=== PATIENT | female | born 1945 | race Caucasian/White ===

== ENCOUNTER 2017-07-22 20:29 | Inpatient (IN) | payer MEDICARE, OTHER ==
[~2017-07-22] VITALS: Ht 167.6 cm; Wt 53.3 kg
[2017-07-22] MEDS ORDERED: SODIUM CHLORIDE 0.9% 1,000 ML IVB ONE (20:46)
[2017-07-22 21:25] LABS: Hematocrit 41.4 % (36.0-46.0); Hemoglobin 14.3 g/dL (12.2-16.2); Mean Corpuscular Hgb Conc. 34.5 g/dL (32.0-36.0); Mean Corpuscular Volume 89.8 fL (80.0-100.0); Platelet Count (auto) 252 10^3/uL (140-450); Red Cell Distribution Width 14.4 % (11.8-14.3); White Blood Cell 28.3 10^3/uL (4.4-10.8)
[2017-07-22 21:31] LABS: Basophils % (manual) 0 (0.0-2.0); Blast Cells 0; Eosinophils % (manual) 0 (0-7); Metamyelocytes % 0; Myelocytes % 0; Promyelocytes % 0
[2017-07-22 21:57] LABS: Alanine Aminotransferase 111 U/L (13-56); Albumin 2.1 g/dL (3.4-5.0); Anion Gap 25 (5-15); Blood Alcohol < 3.0 mg/dL (0-5); Calcium 8.7 mg/dL (8.5-10.1); Carbon Dioxide 10 mmol/L (21-32); Chloride 98 mmol/L (98-107); GFR African American 15 mL/min; GFR Non-African American 12 mL/min; Glucose 128 mg/dL (74-106); Magnesium 3.5 mg/dL (1.6-2.6); Potassium 3.8 mmol/L (3.5-5.1); Sodium 133 mmol/L (136-145)
[2017-07-22 22:00] LABS: Alkaline Phosphatase 106 U/L (45-117); Aspartate Aminotransferase 99 U/L (15-37); Bilirubin, Total 0.7 mg/dL (0.2-1.0); Total Protein 7.1 g/dL (6.4-8.2)
[2017-07-22 22:09] LABS: INR 1.01 (0.9-1.15); Partial Thromboplastin Time 32.4 sec (22.64-33.71)
[2017-07-22 22:19] LABS: Urine Bacteria FEW /hpf (None Seen); Urine Blood Negative /uL (Negative); Urine Hyaline Cast FEW /lpf (0 - 2); Urine Specific Gravity 1.014 (1.001-1.035); Urine WBC 2 /hpf (0 - 5)
[2017-07-22 22:19] LABS: BUN/Creatinine Ratio 70.2
[2017-07-22 22:26] LABS: Alcohol, Urine < 3.0 mg/dL (0-5); Amphetamine Screen, Urine NEGATIVE (NEGATIVE); Barbiturate Scree,Urine NEGATIVE (NEGATIVE); Benzodiazephine Screen, Urine NEGATIVE (NEGATIVE); Cannabinoid Screen, Urine NEGATIVE (NEGATIVE); Cocaine Screen, Urine NEGATIVE (NEGATIVE); Opiate Scree,Urine NEGATIVE (NEGATIVE); Phencyclidine Screen, Urine NEGATIVE (NEGATIVE)
[2017-07-22 22:28] LABS: Blood Urea Nitrogen 271 mg/dL (7-18)
[2017-07-22 23:14] LABS: Band Neutrophils % (manual) 5; Lymphocytes % (manual) 1 (10.0-50.0); Monocytes % (manual) 5 (0-12); Reactive Lymphocytes 2
[2017-07-23] MEDS ORDERED: SODIUM CHLORIDE 0.9% 1,000 ML IV ONE (00:45)
[2017-07-23] MEDS ORDERED: PIPERACILLIN-TAZOB 3.375GM 100 ML IV ONE (01:00)
[2017-07-23] MEDS ORDERED: metroNIDAZOLE 500MG/100ML 100 ML IV ONE (01:00)
[2017-07-23] MEDS ORDERED: NALBUPHINE HCL 10 MG/1ml INJECTION IV ONE (01:15)
[2017-07-23 01:24] LABS: CRP High Sensitivity 21.96 mg/dL (< 0.3)
[2017-07-23] MEDS ORDERED: ACETAMINOPHEN 500 MG TAB PO PRN (04:45)
[2017-07-23] MEDS ORDERED: ONDANSETRON HCL 4 MG/2 ML VIAL IV PRN (04:45)
[2017-07-23] MEDS ORDERED: HYDROcodone-ACET 5/325MG TAB PO PRN (04:45)
[2017-07-23] MEDS: SODIUM CHLORIDE 0.9% 1,000 ML IV SCH ×2 (05:09→12:46)
[2017-07-23 05:45] LABS: Calcium 8.3 mg/dL (8.5-10.1); Potassium 3.3 mmol/L (3.5-5.1)
[2017-07-23] MEDS ORDERED: POTASSIUM CHL 20MEQ/100ML 100 ML IV ONE (06:00)
[2017-07-23] MEDS: PIPERACILLIN-TAZOB 2.25GM 50 ML IV SCH ×3 (06:16→22:07)
[2017-07-23] MEDS: MORPHINE SULFATE 8mg/ml INJ SDV IV PRN ×2 (07:45→19:55)
[2017-07-23] MEDS: PANTOPRAZOLE 40 MG/10 ML VIAL IV SCH (10:27)
[2017-07-23] MEDS ORDERED: MIDAZOLAM HCL 1MG/1ML-2 ML VIAL ONE (13:13)
[2017-07-23] MEDS ORDERED: fentaNYL CITRATE 100 MCG/2 ML VL ONE (13:13)
[2017-07-23] MEDS ORDERED: ETOMIDATE (2MG/ML) 20ML VIAL IV ONE (16:17)
[2017-07-23 18:08] VITALS: BP 115/69
[2017-07-23] MEDS: metroNIDAZOLE 500MG/100ML 100 ML IV SCH (19:55)
[2017-07-23 20:00] VITALS: BP 119/65
[2017-07-23] MEDS: SODIUM BICARBONATE 50ML VIAL 150 ML in D5W 5% 1,000 ML IV SCH (21:15)
[2017-07-24] MEDS: MORPHINE SULFATE 8mg/ml INJ SDV IV PRN ×3 (00:58→17:43)
[2017-07-24] MEDS: metroNIDAZOLE 500MG/100ML 100 ML IV SCH ×4 (00:58→17:43)
[2017-07-24 05:37] LABS: Hemoglobin 10.5 g/dL (12.2-16.2); Mean Corpuscular Hemoglobin 31.2 pg (28.0-32.0); Mean Corpuscular Hgb Conc. 34.9 g/dL (32.0-36.0); Mean Corpuscular Volume 89.4 fL (80.0-100.0); Platelet Count (auto) 179 10^3/uL (140-450); Red Blood Cells 3.36 10^6/uL (4.0-5.20); Red Cell Distribution Width 14.3 % (11.8-14.3); White Blood Cell 19.2 10^3/uL (4.4-10.8)
[2017-07-24] MEDS: PIPERACILLIN-TAZOB 2.25GM 50 ML IV SCH ×3 (05:44→22:21)
[2017-07-24 05:54] LABS: Albumin 1.6 g/dL (3.4-5.0); BUN/Creatinine Ratio 70.2; Bilirubin, Total 0.7 mg/dL (0.2-1.0); Calcium 7.8 mg/dL (8.5-10.1); Magnesium 2.9 mg/dL (1.6-2.6); Total Protein 5.7 g/dL (6.4-8.2)
[2017-07-24 06:12] LABS: Potassium 2.7 mmol/L (3.5-5.1)
[2017-07-24] MEDS: SODIUM BICARBONATE 50ML VIAL 150 ML in D5W 5% 1,000 ML IV SCH (06:27)
[2017-07-24 06:41] LABS: Basophils % (manual) 0 (0.0-2.0); Blast Cells 0; Promyelocytes % 0
[2017-07-24 06:44] LABS: Band Neutrophils % (manual) 8; Eosinophils % (manual) 4 (0-7); Lymphocytes % (manual) 1 (10.0-50.0); Metamyelocytes % 2; Monocytes % (manual) 6 (0-12); Myelocytes % 1; Reactive Lymphocytes 1
[2017-07-24] MEDS: POTASSIUM CHL 20MEQ/100ML 100 ML IV SCH ×4 (06:45→12:45)
[2017-07-24 08:00] VITALS: BP 113/58
[2017-07-24] MEDS ORDERED: POTASSIUM CHL 10% (20 MEQ/15ML) 15ml ORAL SOLN ONE (09:16)
[2017-07-24] MEDS: PANTOPRAZOLE 40 MG/10 ML VIAL IV SCH (09:25)
[2017-07-24] MEDS ORDERED: SODIUM CHLORIDE 0.9% 1,000 ML IV ONE (11:15)
[2017-07-24 12:00] VITALS: BP 104/60
[2017-07-24] MEDS ORDERED: D5W/SOD CHL 0.45%/KCL 40MEQ 1,000 ML IV SCH (12:15)
[2017-07-24] MEDS ORDERED: LIDOCAINE 1% (LOCAL ANESTH.) PF 5ml SDV ID ONE (14:45)
[2017-07-24 16:00] VITALS: BP 112/59
[2017-07-24 18:34] LABS: BUN/Creatinine Ratio 62.7; Potassium 3.7 mmol/L (3.5-5.1)
[2017-07-24 20:00] VITALS: BP 123/68
[2017-07-24] MEDS: D5W 5% 1,000 ML IV SCH (20:26)
[2017-07-24] MEDS: SODIUM CHLOR 0.9% PF (SALINE LOCK) 10ML VIAL/SYR IV SCH (22:20)
[2017-07-25] VITALS (7 sets, daily range): BP systolic 107–138; BP diastolic 50–67
[2017-07-25] MEDS: PIPERACILLIN-TAZOB 2.25GM 50 ML IV SCH ×3 (05:00→20:40)
[2017-07-25] MEDS: D5W 5% 1,000 ML IV SCH ×4 (05:00→20:39)
[2017-07-25 05:18] LABS: Hematocrit 28.9 % (36.0-46.0); Hemoglobin 10.1 g/dL (12.2-16.2); Mean Corpuscular Hemoglobin 31.7 pg (28.0-32.0); Mean Corpuscular Hgb Conc. 35.1 g/dL (32.0-36.0); Mean Corpuscular Volume 90.3 fL (80.0-100.0); Platelet Count (auto) 171 10^3/uL (140-450); Red Cell Distribution Width 14.4 % (11.8-14.3); White Blood Cell 8.9 10^3/uL (4.4-10.8)
[2017-07-25 05:19] LABS: Basophils % (manual) 0 (0.0-2.0); Blast Cells 0; Metamyelocytes % 0; Myelocytes % 0; Promyelocytes % 0; Reactive Lymphocytes 0
[2017-07-25 06:48] LABS: Band Neutrophils % (manual) 13
[2017-07-25 06:49] LABS: BUN/Creatinine Ratio 49.7; Calcium 7.8 mg/dL (8.5-10.1); Potassium 3.5 mmol/L (3.5-5.1)
[2017-07-25 06:49] LABS: Eosinophils % (manual) 8 (0-7); Monocytes % (manual) 4 (0-12)
[2017-07-25 06:50] LABS: Lymphocytes % (manual) 2 (10.0-50.0)
[2017-07-25] MEDS: metroNIDAZOLE 500MG/100ML 100 ML IV SCH ×5 (06:56→23:39)
[2017-07-25] MEDS: PANTOPRAZOLE 40 MG/10 ML VIAL IV SCH (09:33)
[2017-07-25] MEDS: SODIUM CHLOR 0.9% PF (SALINE LOCK) 10ML VIAL/SYR IV SCH ×2 (09:33→20:39)
[2017-07-25] MEDS ORDERED: TPN PER PHARMACY 0 ML IV SCH (14:30)
[2017-07-25] MEDS ORDERED: DEXTROSE (50%) 50ML SYRG IV SCH (20:00)
[2017-07-25] MEDS ORDERED: CLINIMIX PER PHARMACY IV NR ×2 (20:00)
[2017-07-25] MEDS: InsuLIN REG 1unit/0.01ml Soln (100units/ml) SC SCH (23:39)
[2017-07-25] MEDS: ACCU-CHEK COMFORT CURVE STRIP VI SCH (23:39)
[2017-07-26] MEDS: metroNIDAZOLE 500MG/100ML 100 ML IV SCH ×4 (05:14→23:51)
[2017-07-26] MEDS: PIPERACILLIN-TAZOB 2.25GM 50 ML IV SCH ×3 (05:59→17:58)
[2017-07-26] MEDS: ACCU-CHEK COMFORT CURVE STRIP VI SCH ×3 (05:59→17:59)
[2017-07-26] MEDS: InsuLIN REG 1unit/0.01ml Soln (100units/ml) SC SCH ×3 (06:07→17:59)
[2017-07-26 06:11] LABS: Hematocrit 34.4 % (36.0-46.0); Hemoglobin 11.4 g/dL (12.2-16.2); Mean Corpuscular Hemoglobin 30.5 pg (28.0-32.0); Mean Corpuscular Hgb Conc. 33.3 g/dL (32.0-36.0); Mean Corpuscular Volume 91.5 fL (80.0-100.0); Platelet Count (auto) 158 10^3/uL (140-450); Red Blood Cells 3.76 10^6/uL (4.0-5.20); Red Cell Distribution Width 14.5 % (11.8-14.3); White Blood Cell 11.2 10^3/uL (4.4-10.8)
[2017-07-26 06:14] LABS: Band Neutrophils % (manual) 0; Basophils % (manual) 0 (0.0-2.0); Blast Cells 0; Metamyelocytes % 0; Myelocytes % 0; Promyelocytes % 0; Reactive Lymphocytes 0
[2017-07-26 06:38] LABS: Albumin 1.6 g/dL (3.4-5.0); BUN/Creatinine Ratio 32.5; Bilirubin, Total 0.3 mg/dL (0.2-1.0); Calcium 7.5 mg/dL (8.5-10.1); Phosphorus 1.1 mg/dL (2.5-4.90); Potassium 3.4 mmol/L (3.5-5.1); Pre Albumin 9.7 mg/dL (20.0-40.0); Total Protein 5.5 g/dL (6.4-8.2)
[2017-07-26 08:00] VITALS: BP 149/77
[2017-07-26] MEDS: MORPHINE SULFATE 8mg/ml INJ SDV IV PRN ×3 (08:57→23:51)
[2017-07-26 10:00] VITALS: BP 127/79
[2017-07-26] MEDS ORDERED: LORazepam 2MG/ML-1ML VIAL IV PRN (10:30)
[2017-07-26] MEDS ORDERED: POTASSIUM CHL 20MEQ/100ML 100 ML IV ONE (10:30)
[2017-07-26] MEDS ORDERED: POTASSIUM PHOSPHATE 44 MEQ in D5W 5% 250 ML IV ONE (11:30)
[2017-07-26] MEDS: PANTOPRAZOLE 40 MG/10 ML VIAL IV SCH (11:40)
[2017-07-26] MEDS: SODIUM CHLOR 0.9% PF (SALINE LOCK) 10ML VIAL/SYR IV SCH ×2 (11:40→20:45)
[2017-07-26] MEDS: D5W 5% 1,000 ML IV SCH ×2 (11:45→20:46)
[2017-07-26 12:00] VITALS: BP 148/89
[2017-07-26 12:09] LABS: Eosinophils % (manual) 6 (0-7); Lymphocytes % (manual) 5 (10.0-50.0); Monocytes % (manual) 4 (0-12)
[2017-07-26 16:00] VITALS: BP 137/75
[2017-07-26 19:51] VITALS: BP 132/77
[2017-07-26] MEDS ORDERED: TPN PER PHARMACY IV NR ×9 (20:00)
[2017-07-26 23:50] VITALS: BP 157/81
[2017-07-27] MEDS: InsuLIN REG 1unit/0.01ml Soln (100units/ml) SC SCH ×4 (00:07→17:57)
[2017-07-27] MEDS: ACCU-CHEK COMFORT CURVE STRIP VI SCH ×4 (00:07→17:57)
[2017-07-27] MEDS: PIPERACILLIN-TAZOB 2.25GM 50 ML IV SCH ×4 (01:00→17:51)
[2017-07-27 04:00] VITALS: BP 122/71
[2017-07-27] MEDS: metroNIDAZOLE 500MG/100ML 100 ML IV SCH ×3 (06:38→17:51)
[2017-07-27 06:48] LABS: Albumin 1.5 g/dL (3.4-5.0); BUN/Creatinine Ratio 25.7; Bilirubin, Total 0.2 mg/dL (0.2-1.0); Calcium 7.3 mg/dL (8.5-10.1); Magnesium 1.9 mg/dL (1.6-2.6); Phosphorus 2.2 mg/dL (2.5-4.90); Total Protein 5.3 g/dL (6.4-8.2)
[2017-07-27] MEDS: MORPHINE SULFATE 8mg/ml INJ SDV IV PRN ×3 (08:38→21:55)
[2017-07-27] MEDS: PANTOPRAZOLE 40 MG/10 ML VIAL IV SCH (09:36)
[2017-07-27] MEDS: SODIUM CHLOR 0.9% PF (SALINE LOCK) 10ML VIAL/SYR IV SCH ×2 (09:36→20:29)
[2017-07-27] MEDS ORDERED: MAGNESIUM SULFATE 1GM/100ML 100 ML IV ONE (11:00)
[2017-07-27 11:50] VITALS: BP 135/81
[2017-07-27] MEDS: D5W 5% 1,000 ML IV SCH (12:40)
[2017-07-27] MEDS ORDERED: GASTROGRAFIN 120 ML SOL ONE ×2 (13:28→13:38)
[2017-07-27 15:59] VITALS: BP 119/77
[2017-07-27 19:48] VITALS: BP 134/73
[2017-07-27] MEDS: TPN PER PHARMACY IV NR ×9 (20:42)
[2017-07-28] VITALS (52 sets, daily range): BP systolic 82–154; BP diastolic 53–115
[2017-07-28] MEDS: ACCU-CHEK COMFORT CURVE STRIP VI SCH ×5 (00:21→23:59)
[2017-07-28] MEDS: InsuLIN REG 1unit/0.01ml Soln (100units/ml) SC SCH ×4 (00:21→17:43)
[2017-07-28] MEDS: PIPERACILLIN-TAZOB 2.25GM 50 ML IV SCH ×3 (00:21→12:35)
[2017-07-28] MEDS: metroNIDAZOLE 500MG/100ML 100 ML IV SCH ×5 (00:22→23:59)
[2017-07-28 02:32] LABS: Urine Bacteria NONE SEEN /hpf (None Seen); Urine Blood 1+ /uL (Negative); Urine Specific Gravity 1.027 (1.001-1.035); Urine WBC 2 /hpf (0 - 5)
[2017-07-28] MEDS: D5W 5% 1,000 ML IV SCH (03:47)
[2017-07-28 05:52] LABS: Basophils # (auto) 0 uL; Basophils % (auto) 0.4 % (0.0-2.0); Eosinophils # (auto) 0.1 uL; Hematocrit 32.1 % (36.0-46.0); Hemoglobin 10.6 g/dL (12.2-16.2); Lymphocytes # (auto) 1.1 uL; Lymphocytes % (auto) 8.5 % (10.0-50.0); Mean Corpuscular Hemoglobin 30.8 pg (28.0-32.0); Mean Corpuscular Volume 93.1 fL (80.0-100.0); Monocytes # (auto) 0.6 uL; Monocytes % (auto) 4.6 % (0.0-12.0); Neutrophils # (auto) 10.7 uL; Neutrophils % (auto) 85.5 % (37.0-80.0); Platelet Count (auto) 123 10^3/uL (140-450); Red Blood Cells 3.45 10^6/uL (4.0-5.20); Red Cell Distribution Width 14.7 % (11.8-14.3); White Blood Cell 12.5 10^3/uL (4.4-10.8)
[2017-07-28 05:55] LABS: INR 1.14 (0.9-1.15); Partial Thromboplastin Time 30.3 sec (22.64-33.71); Prothrombin Time 12.4 sec (9.37-12.3)
[2017-07-28 06:03] LABS: Potassium 3.4 mmol/L (3.5-5.1)
[2017-07-28 06:12] LABS: Albumin 1.5 g/dL (3.4-5.0); BUN/Creatinine Ratio 29.1; Calcium 7.3 mg/dL (8.5-10.1); Magnesium 1.9 mg/dL (1.6-2.6)
[2017-07-28 06:14] LABS: Bilirubin, Total 0.3 mg/dL (0.2-1.0); Total Protein 5.3 g/dL (6.4-8.2)
[2017-07-28] MEDS ORDERED: SUCCINYLCHOLINE CHLORIDE 20 MG/ML 10ML VIAL IV ONE (07:03)
[2017-07-28] MEDS ORDERED: HYDROmorphone HCL 2 MG/ML VL ONE ×2 (07:06→09:46)
[2017-07-28] MEDS ORDERED: POVIDONE IODINE 10 % TOPICAL OINT 30GM TOP ONE (07:06)
[2017-07-28] MEDS ORDERED: fentaNYL CITRATE 100 MCG/2 ML VL ONE ×2 (07:06→07:07)
[2017-07-28] MEDS ORDERED: ETOMIDATE (2MG/ML) 20ML VIAL IV ONE (07:07)
[2017-07-28] MEDS ORDERED: ROCURONIUM 10MG/ML 10ML VIAL IV ONE (07:07)
[2017-07-28] MEDS ORDERED: FUROSEMIDE 20 MG/2 ML VIAL ONE (07:07)
[2017-07-28] MEDS ORDERED: MIDAZOLAM HCL 1MG/1ML-2 ML VIAL ONE ×2 (07:35→09:46)
[2017-07-28] MEDS ORDERED: D5W 5% 1,000 ML IV SCH (08:00)
[2017-07-28] MEDS ORDERED: NOREPINEPHRINE 16 MG/500ML KIT 500 ML IV ONE (08:59)
[2017-07-28 09:09] LABS: Phosphorus 2.3 mg/dL (2.5-4.90)
[2017-07-28] MEDS ORDERED: MIDAZOLAM DRIP 50 mg/50mL 50 ML IV ONE (10:24)
[2017-07-28] MEDS ORDERED: POTASSIUM PHOSP 22MEQ(15MMOLE) in NS 100 ML IV ONE (11:30)
[2017-07-28] MEDS: NOREPINEPHRINE 16 MG/500ML KIT 500 ML IV SCH (11:35)
[2017-07-28] MEDS: PANTOPRAZOLE 40 MG/10 ML VIAL IV SCH (11:53)
[2017-07-28] MEDS: SODIUM CHLOR 0.9% PF (SALINE LOCK) 10ML VIAL/SYR IV SCH ×2 (11:53→22:58)
[2017-07-28] MEDS: D5W/SOD CHL 0.45% 1,000 ML IV SCH (12:35)
[2017-07-28 13:41] LABS: Basophils # (auto) 0.1 uL; Basophils % (auto) 0.3 % (0.0-2.0); Eosinophils # (auto) 0 uL; Eosinophils % (auto) 0.2 % (0.0-7.0); Hematocrit 38.9 % (36.0-46.0); Hemoglobin 12.4 g/dL (12.2-16.2); Lymphocytes # (auto) 1.3 uL; Lymphocytes % (auto) 6.4 % (10.0-50.0); Mean Corpuscular Hemoglobin 30.8 pg (28.0-32.0); Mean Corpuscular Hgb Conc. 31.9 g/dL (32.0-36.0); Mean Corpuscular Volume 96.4 fL (80.0-100.0); Monocytes # (auto) 0.7 uL; Monocytes % (auto) 3.7 % (0.0-12.0); Neutrophils # (auto) 18.1 uL; Neutrophils % (auto) 89.4 % (37.0-80.0); Nucleated Red Blood Cells % 0.2 %; Platelet Count (auto) 112 10^3/uL (140-450); Red Blood Cells 4.04 10^6/uL (4.0-5.20); Red Cell Distribution Width 15.1 % (11.8-14.3); White Blood Cell 20.3 10^3/uL (4.4-10.8)
[2017-07-28 13:56] LABS: BUN/Creatinine Ratio 22.3; Calcium 6.3 mg/dL (8.5-10.1)
[2017-07-28] MEDS: MIDAZOLAM DRIP 50 mg/50mL 50 ML IV SCH ×2 (16:21→20:23)
[2017-07-28] MEDS: fentaNYL Drip 2500mCg/250mlNS 250 ML IV SCH (16:48)
[2017-07-28] MEDS: PIPERACILLIN-TAZOB 3.375GM 100 ML IV SCH ×2 (17:42→23:59)
[2017-07-28] MEDS: TPN PER PHARMACY IV NR ×19 (19:34→20:26)
[2017-07-28] MEDS ORDERED: SODIUM CHLORIDE 0.9% 500 ML IV ONE (21:30)
[2017-07-28] MEDS ORDERED: SODIUM BICARBONATE 8.4 % INJ 50ML VIAL IV ONE (21:30)
[2017-07-28] MEDS ORDERED: SODIUM BICARBONATE 8.4% INJ 50ML SYRINGE ONE (21:36)
[2017-07-28 23:18] LABS: Lactic Acid w/Reflex 3.6 mmol/L (0.4-2.0)
[2017-07-29] VITALS (100 sets, daily range): BP systolic 86–132; BP diastolic 40–84
[2017-07-29] MEDS: D5W/SOD CHL 0.45% 1,000 ML IV SCH ×5 (00:03→20:24)
[2017-07-29] MEDS ORDERED: ACETAMINOPHEN 650 MG RECT SUPP PR PRN (01:00)
[2017-07-29 04:32] LABS: Basophils # (auto) 0.1 uL; Basophils % (auto) 0.6 % (0.0-2.0); Eosinophils # (auto) 0.1 uL; Eosinophils % (auto) 0.3 % (0.0-7.0); Hematocrit 30.6 % (36.0-46.0); Hemoglobin 10.1 g/dL (12.2-16.2); Lymphocytes # (auto) 0.9 uL; Lymphocytes % (auto) 4.7 % (10.0-50.0); Mean Corpuscular Hemoglobin 31.3 pg (28.0-32.0); Mean Corpuscular Hgb Conc. 33.1 g/dL (32.0-36.0); Mean Corpuscular Volume 94.8 fL (80.0-100.0); Monocytes # (auto) 0.8 uL; Neutrophils # (auto) 17.9 uL; Neutrophils % (auto) 90.4 % (37.0-80.0); Platelet Count (auto) 115 10^3/uL (140-450); Red Blood Cells 3.23 10^6/uL (4.0-5.20); Red Cell Distribution Width 14.8 % (11.8-14.3); White Blood Cell 19.8 10^3/uL (4.4-10.8)
[2017-07-29 04:49] LABS: Albumin 1.1 g/dL (3.4-5.0); BUN/Creatinine Ratio 25.6; Calcium 6.3 mg/dL (8.5-10.1); Magnesium 1.4 mg/dL (1.6-2.6)
[2017-07-29 04:52] LABS: Bilirubin, Total 0.5 mg/dL (0.2-1.0); Phosphorus 3.4 mg/dL (2.5-4.90)
[2017-07-29] MEDS: InsuLIN REG 1unit/0.01ml Soln (100units/ml) SC SCH ×4 (06:18→18:06)
[2017-07-29] MEDS: metroNIDAZOLE 500MG/100ML 100 ML IV SCH ×3 (06:18→17:04)
[2017-07-29] MEDS: PIPERACILLIN-TAZOB 3.375GM 100 ML IV SCH ×3 (06:18→18:06)
[2017-07-29] MEDS: ACCU-CHEK COMFORT CURVE STRIP VI SCH ×3 (06:18→18:06)
[2017-07-29] MEDS: NOREPINEPHRINE 16 MG/500ML KIT 500 ML IV SCH (09:00)
[2017-07-29] MEDS: MAGNESIUM SULFATE 1GM/100ML 100 ML IV SCH ×2 (09:09→10:10)
[2017-07-29] MEDS ORDERED: MAGNESIUM SULFATE 1GM/100ML 100 ML IV STA (09:57)
[2017-07-29] MEDS: PANTOPRAZOLE 40 MG/10 ML VIAL IV SCH (10:10)
[2017-07-29] MEDS: SODIUM CHLOR 0.9% PF (SALINE LOCK) 10ML VIAL/SYR IV SCH ×2 (10:15→20:25)
[2017-07-29] MEDS ORDERED: VANCOMYCIN PER PHARMACY 0 MG IV SCH (11:45)
[2017-07-29] MEDS ORDERED: FLUCONAZOLE 200MG/100ML 100 ML IV ONE (11:45)
[2017-07-29] MEDS ORDERED: DEXTROSE (50%) 50ML SYRG IV PRN (11:45)
[2017-07-29] MEDS: MIDAZOLAM DRIP 50 mg/50mL 50 ML IV SCH (12:40)
[2017-07-29] MEDS: ALBUMIN 25% 100 ML IV SCH ×2 (12:41→20:22)
[2017-07-29] MEDS ORDERED: VANCOMYCIN 750 MG in SODIUM CHL 0.9% 250 ML IV SCH (15:00)
[2017-07-29 15:15] LABS: Pre Albumin 9.4 mg/dL (20.0-40.0)
[2017-07-29] MEDS: fentaNYL Drip 2500mCg/250mlNS 250 ML IV SCH (16:11)
[2017-07-29] MEDS: TPN PER PHARMACY IV NR ×10 (19:36)
[2017-07-29] MEDS ORDERED: TPN PER PHARMACY IV NR ×10 (20:00)
[2017-07-30] VITALS (94 sets, daily range): BP systolic 81–121; BP diastolic 35–65
[2017-07-30] MEDS: ACCU-CHEK COMFORT CURVE STRIP VI SCH ×4 (00:17→17:59)
[2017-07-30] MEDS: InsuLIN REG 1unit/0.01ml Soln (100units/ml) SC SCH ×4 (00:18→18:01)
[2017-07-30] MEDS: MIDAZOLAM DRIP 50 mg/50mL 50 ML IV SCH ×2 (03:05→19:44)
[2017-07-30] MEDS: ALBUMIN 25% 100 ML IV SCH (04:48)
[2017-07-30] MEDS: PIPERACILLIN-TAZOB 3.375GM 100 ML IV SCH ×4 (06:32→19:40)
[2017-07-30] MEDS: metroNIDAZOLE 500MG/100ML 100 ML IV SCH ×4 (06:33→17:58)
[2017-07-30 07:07] LABS: Eosinophils # (auto) 0.1 uL; Hemoglobin 7.3 g/dL (12.2-16.2); Lymphocytes # (auto) 0.7 uL; Red Blood Cells 2.32 10^6/uL (4.0-5.20)
[2017-07-30 07:10] LABS: Basophils # (auto) 0 uL; Basophils % (auto) 0.1 % (0.0-2.0); Eosinophils % (auto) 0.8 % (0.0-7.0); Hematocrit 21.7 % (36.0-46.0); Lymphocytes % (auto) 5.2 % (10.0-50.0); Mean Corpuscular Hemoglobin 31.7 pg (28.0-32.0); Mean Corpuscular Hgb Conc. 33.9 g/dL (32.0-36.0); Mean Corpuscular Volume 93.5 fL (80.0-100.0); Monocytes # (auto) 0.3 uL; Monocytes % (auto) 2.5 % (0.0-12.0); Neutrophils # (auto) 12.2 uL; Neutrophils % (auto) 91.4 % (37.0-80.0); Platelet Count (auto) 106 10^3/uL (140-450); Red Cell Distribution Width 14.2 % (11.8-14.3); White Blood Cell 13.4 10^3/uL (4.4-10.8)
[2017-07-30 07:34] LABS: Albumin 1.8 g/dL (3.4-5.0); BUN/Creatinine Ratio 23.9; Bilirubin, Total 0.4 mg/dL (0.2-1.0); Calcium 6.5 mg/dL (8.5-10.1); Phosphorus 1.9 mg/dL (2.5-4.90); Potassium 3.4 mmol/L (3.5-5.1); Total Protein 4.2 g/dL (6.4-8.2)
[2017-07-30] MEDS: D5W/SOD CHL 0.45% 1,000 ML IV SCH ×2 (07:45→16:30)
[2017-07-30] MEDS: fentaNYL Drip 2500mCg/250mlNS 250 ML IV SCH ×2 (07:47→21:17)
[2017-07-30] MEDS ORDERED: POTASSIUM PHOSP 22MEQ(15MMOLE) in NS 100 ML IV ONE (09:00)
[2017-07-30] MEDS ORDERED: DEXTROSE (50%) 50ML SYRG IV PRN (10:00)
[2017-07-30] MEDS: PANTOPRAZOLE 40 MG/10 ML VIAL IV SCH (10:09)
[2017-07-30] MEDS: SODIUM CHLOR 0.9% PF (SALINE LOCK) 10ML VIAL/SYR IV SCH ×2 (10:10→22:00)
[2017-07-30] MEDS: FLUCONAZOLE 200MG/100ML 100 ML IV SCH (10:10)
[2017-07-30] MEDS: NOREPINEPHRINE 16 MG/500ML KIT 500 ML IV SCH (10:12)
[2017-07-30 10:29] LABS: INR 1.22 (0.9-1.15); Partial Thromboplastin Time 51.1 sec (22.64-33.71); Prothrombin Time 13.3 sec (9.37-12.3)
[2017-07-30] MEDS: VANCOMYCIN 1GM/250ML 250 ML IV SCH (16:44)
[2017-07-30 18:19] LABS: BUN/Creatinine Ratio 21.2; Calcium 6.7 mg/dL (8.5-10.1); Potassium 3.7 mmol/L (3.5-5.1)
[2017-07-30 19:00] LABS: Basophils # (auto) 0 uL; Eosinophils # (auto) 0.1 uL; Eosinophils % (auto) 0.8 % (0.0-7.0); Hemoglobin 10.4 g/dL (12.2-16.2); Lymphocytes # (auto) 0.6 uL; Lymphocytes % (auto) 5.5 % (10.0-50.0); Mean Corpuscular Hemoglobin 30.8 pg (28.0-32.0); Mean Corpuscular Hgb Conc. 33.6 g/dL (32.0-36.0); Mean Corpuscular Volume 91.6 fL (80.0-100.0); Monocytes # (auto) 0.3 uL; Monocytes % (auto) 2.8 % (0.0-12.0); Neutrophils # (auto) 10.2 uL; Neutrophils % (auto) 90.9 % (37.0-80.0); Platelet Count (auto) 112 10^3/uL (140-450); Red Blood Cells 3.39 10^6/uL (4.0-5.20); Red Cell Distribution Width 15.4 % (11.8-14.3); White Blood Cell 11.2 10^3/uL (4.4-10.8)
[2017-07-30] MEDS ORDERED: TPN PER PHARMACY IV NR ×10 (20:00)
[2017-07-31] VITALS (105 sets, daily range): BP systolic 93–152; BP diastolic 45–82
[2017-07-31] MEDS: PIPERACILLIN-TAZOB 3.375GM 100 ML IV SCH ×4 (00:09→18:30)
[2017-07-31] MEDS: ACCU-CHEK COMFORT CURVE STRIP VI SCH ×4 (00:10→18:05)
[2017-07-31] MEDS: metroNIDAZOLE 500MG/100ML 100 ML IV SCH ×4 (00:14→17:30)
[2017-07-31] MEDS: D5W/SOD CHL 0.45% 1,000 ML IV SCH ×3 (03:45→20:00)
[2017-07-31 04:12] LABS: Basophils # (auto) 0 uL; Basophils % (auto) 0.1 % (0.0-2.0); Eosinophils # (auto) 0.1 uL; Eosinophils % (auto) 0.7 % (0.0-7.0); Hematocrit 30.1 % (36.0-46.0); Hemoglobin 10.3 g/dL (12.2-16.2); Lymphocytes # (auto) 0.7 uL; Lymphocytes % (auto) 7.2 % (10.0-50.0); Mean Corpuscular Hemoglobin 31.2 pg (28.0-32.0); Mean Corpuscular Hgb Conc. 34.4 g/dL (32.0-36.0); Mean Corpuscular Volume 90.8 fL (80.0-100.0); Monocytes # (auto) 0.3 uL; Monocytes % (auto) 3.1 % (0.0-12.0); Neutrophils # (auto) 8.8 uL; Neutrophils % (auto) 88.9 % (37.0-80.0); Platelet Count (auto) 117 10^3/uL (140-450); Red Blood Cells 3.32 10^6/uL (4.0-5.20); Red Cell Distribution Width 15.8 % (11.8-14.3); White Blood Cell 9.9 10^3/uL (4.4-10.8)
[2017-07-31 04:46] LABS: Albumin 1.7 g/dL (3.4-5.0); BUN/Creatinine Ratio 22.5; Bilirubin, Total 0.5 mg/dL (0.2-1.0); Magnesium 1.9 mg/dL (1.6-2.6); Phosphorus 1.6 mg/dL (2.5-4.90); Potassium 4.1 mmol/L (3.5-5.1); Pre Albumin 7.2 mg/dL (20.0-40.0); Total Protein 4.3 g/dL (6.4-8.2)
[2017-07-31] MEDS: InsuLIN REG 1unit/0.01ml Soln (100units/ml) SC SCH ×4 (06:00→18:00)
[2017-07-31] MEDS ORDERED: TPN PER PHARMACY 0 ML IV SCH (08:00)
[2017-07-31] MEDS ORDERED: TPN PER PHARMACY IV NR ×30 (08:30→20:00)
[2017-07-31] MEDS ORDERED: POTASSIUM PHOSPHATE 26.4 MEQ in SODIUM CHL 0.9% 100 ML IV ONE (09:00)
[2017-07-31] MEDS ORDERED: POTASSIUM PHOSPHATE 22 MEQ in SODIUM CHL 0.9% 100 ML IV ONE ×2 (09:30→10:00)
[2017-07-31] MEDS: PANTOPRAZOLE 40 MG/10 ML VIAL IV SCH (09:41)
[2017-07-31] MEDS: FLUCONAZOLE 200MG/100ML 100 ML IV SCH (09:41)
[2017-07-31] MEDS ORDERED: MAGNESIUM SULFATE 1GM/100ML 100 ML IV ONE ×2 (10:00→11:45)
[2017-07-31] MEDS: SODIUM CHLOR 0.9% PF (SALINE LOCK) 10ML VIAL/SYR IV SCH (10:45)
[2017-07-31] MEDS: ALBUMIN 25% 100 ML IV SCH ×2 (10:46→16:43)
[2017-07-31] MEDS: NOREPINEPHRINE 16 MG/500ML KIT 500 ML IV SCH (11:00)
[2017-07-31] MEDS: fentaNYL Drip 2500mCg/250mlNS 250 ML IV SCH (12:45)
[2017-07-31] MEDS: VANCOMYCIN 1GM/250ML 250 ML IV SCH (15:30)
[2017-08-01] VITALS (97 sets, daily range): BP systolic 108–177; BP diastolic 63–106
[2017-08-01] MEDS: ACCU-CHEK COMFORT CURVE STRIP VI SCH ×4 (00:13→18:58)
[2017-08-01] MEDS: InsuLIN REG 1unit/0.01ml Soln (100units/ml) SC SCH ×4 (00:13→18:59)
[2017-08-01] MEDS: SODIUM CHLOR 0.9% PF (SALINE LOCK) 10ML VIAL/SYR IV SCH ×3 (00:14→22:14)
[2017-08-01] MEDS: PIPERACILLIN-TAZOB 3.375GM 100 ML IV SCH ×4 (00:14→19:45)
[2017-08-01] MEDS: metroNIDAZOLE 500MG/100ML 100 ML IV SCH ×4 (00:14→18:59)
[2017-08-01] MEDS: ALBUMIN 25% 100 ML IV SCH (01:04)
[2017-08-01 05:53] LABS: Basophils # (auto) 0 uL; Basophils % (auto) 0.1 % (0.0-2.0); Eosinophils # (auto) 0.1 uL; Eosinophils % (auto) 0.6 % (0.0-7.0); Hematocrit 29.2 % (36.0-46.0); Lymphocytes # (auto) 0.5 uL; Lymphocytes % (auto) 6.3 % (10.0-50.0); Mean Corpuscular Hemoglobin 31.2 pg (28.0-32.0); Mean Corpuscular Hgb Conc. 34.1 g/dL (32.0-36.0); Mean Corpuscular Volume 91.5 fL (80.0-100.0); Monocytes # (auto) 0.3 uL; Monocytes % (auto) 3.3 % (0.0-12.0); Neutrophils # (auto) 7.9 uL; Neutrophils % (auto) 89.7 % (37.0-80.0); Platelet Count (auto) 166 10^3/uL (140-450); Red Blood Cells 3.19 10^6/uL (4.0-5.20); Red Cell Distribution Width 15.3 % (11.8-14.3); White Blood Cell 8.8 10^3/uL (4.4-10.8)
[2017-08-01 06:12] LABS: Albumin 2.7 g/dL (3.4-5.0); BUN/Creatinine Ratio 24.3; Bilirubin, Total 0.9 mg/dL (0.2-1.0); Calcium 7.4 mg/dL (8.5-10.1); Magnesium 1.8 mg/dL (1.6-2.6); Phosphorus 1.5 mg/dL (2.5-4.90); Potassium 4.3 mmol/L (3.5-5.1); Total Protein 5.2 g/dL (6.4-8.2)
[2017-08-01] MEDS ORDERED: ENOXAPARIN SOD 30 MG/0.3 ML SYRINGE SC ONE (10:00)
[2017-08-01] MEDS: FLUCONAZOLE 200MG/100ML 100 ML IV SCH (10:09)
[2017-08-01] MEDS: PANTOPRAZOLE 40 MG/10 ML VIAL IV SCH (10:09)
[2017-08-01] MEDS: NOREPINEPHRINE 16 MG/500ML KIT 500 ML IV SCH (10:10)
[2017-08-01] MEDS ORDERED: POTASSIUM PHOSPHATE 44 MEQ in D5W 5% 250 ML IV ONE (10:30)
[2017-08-01] MEDS: fentaNYL Drip 2500mCg/250mlNS 250 ML IV SCH (13:11)
[2017-08-01] MEDS: D5W/SOD CHL 0.45% 1,000 ML IV SCH ×2 (13:12→20:00)
[2017-08-01] MEDS ORDERED: MORPHINE SULFATE 8mg/ml INJ SDV IV ONE (14:15)
[2017-08-01] MEDS: MIDAZOLAM DRIP 50 mg/50mL 50 ML IV SCH (14:27)
[2017-08-01] MEDS: KETOROLAC TROMETH 30 MG/ML 1ML VIAL IV PRN (17:30)
[2017-08-01] MEDS: ENOXAPARIN SOD 30 MG/0.3 ML SYRINGE SC SCH (17:37)
[2017-08-01] MEDS: VANCOMYCIN 750 MG in D5W 5% 250 ML IV SCH (20:00)
[2017-08-01] MEDS ORDERED: TPN PER PHARMACY IV NR ×10 (20:00)
[2017-08-01] MEDS: MORPHINE SULFATE 8mg/ml INJ SDV IV PRN (23:41)
[2017-08-02] VITALS (96 sets, daily range): BP systolic 107–176; BP diastolic 46–100
[2017-08-02 05:20] LABS: Basophils # (auto) 0 uL; Basophils % (auto) 0.2 % (0.0-2.0); Eosinophils # (auto) 0.1 uL; Eosinophils % (auto) 1.3 % (0.0-7.0); Hematocrit 29.1 % (36.0-46.0); Hemoglobin 9.8 g/dL (12.2-16.2); Lymphocytes # (auto) 0.7 uL; Lymphocytes % (auto) 12.1 % (10.0-50.0); Mean Corpuscular Hemoglobin 31.3 pg (28.0-32.0); Mean Corpuscular Hgb Conc. 33.8 g/dL (32.0-36.0); Mean Corpuscular Volume 92.7 fL (80.0-100.0); Monocytes # (auto) 0.3 uL; Monocytes % (auto) 5.7 % (0.0-12.0); Neutrophils # (auto) 4.7 uL; Neutrophils % (auto) 80.7 % (37.0-80.0); Nucleated Red Blood Cells % 0.1 %; Platelet Count (auto) 159 10^3/uL (140-450); Red Blood Cells 3.14 10^6/uL (4.0-5.20); Red Cell Distribution Width 15.3 % (11.8-14.3); White Blood Cell 5.8 10^3/uL (4.4-10.8)
[2017-08-02 05:41] LABS: BUN/Creatinine Ratio 32.7; Bilirubin, Total 0.7 mg/dL (0.2-1.0); Calcium 7.3 mg/dL (8.5-10.1); Potassium 4.2 mmol/L (3.5-5.1); Total Protein 4.8 g/dL (6.4-8.2)
[2017-08-02] MEDS: ACCU-CHEK COMFORT CURVE STRIP VI SCH ×4 (06:00→17:55)
[2017-08-02] MEDS: metroNIDAZOLE 500MG/100ML 100 ML IV SCH ×4 (06:00→17:46)
[2017-08-02] MEDS: InsuLIN REG 1unit/0.01ml Soln (100units/ml) SC SCH ×4 (06:00→17:56)
[2017-08-02] MEDS: PIPERACILLIN-TAZOB 3.375GM 100 ML IV SCH ×4 (06:00→17:46)
[2017-08-02] MEDS: VANCOMYCIN 750 MG in D5W 5% 250 ML IV SCH ×2 (08:33→19:45)
[2017-08-02] MEDS: fentaNYL Drip 2500mCg/250mlNS 250 ML IV SCH (09:00)
[2017-08-02] MEDS: NOREPINEPHRINE 16 MG/500ML KIT 500 ML IV SCH (09:00)
[2017-08-02] MEDS: KETOROLAC TROMETH 30 MG/ML 1ML VIAL IV PRN ×2 (10:06→20:05)
[2017-08-02] MEDS: PANTOPRAZOLE 40 MG/10 ML VIAL IV SCH (10:06)
[2017-08-02] MEDS: FLUCONAZOLE 200MG/100ML 100 ML IV SCH (10:07)
[2017-08-02] MEDS: SODIUM CHLOR 0.9% PF (SALINE LOCK) 10ML VIAL/SYR IV SCH ×2 (10:07→22:03)
[2017-08-02] MEDS: ENOXAPARIN SOD 30 MG/0.3 ML SYRINGE SC SCH (10:07)
[2017-08-02] MEDS ORDERED: POTASSIUM PHOSP 22MEQ(15MMOLE) in NS 100 ML IV ONE (11:00)
[2017-08-02] MEDS ORDERED: DEXTROSE (50%) 50ML SYRG IV SCH (12:00)
[2017-08-02] MEDS: MIDAZOLAM DRIP 50 mg/50mL 50 ML IV SCH (13:07)
[2017-08-02] MEDS: D5W/SOD CHL 0.45% 1,000 ML IV SCH (16:00)
[2017-08-02] MEDS ORDERED: TPN PER PHARMACY IV NR ×10 (20:00)
[2017-08-02] MEDS: MORPHINE SULFATE 8mg/ml INJ SDV IV PRN (23:02)
[2017-08-03] VITALS (80 sets, daily range): BP systolic 130–189; BP diastolic 62–111
[2017-08-03] MEDS: PIPERACILLIN-TAZOB 3.375GM 100 ML IV SCH ×5 (00:01→23:58)
[2017-08-03] MEDS: metroNIDAZOLE 500MG/100ML 100 ML IV SCH ×4 (00:01→22:48)
[2017-08-03] MEDS: ACCU-CHEK COMFORT CURVE STRIP VI SCH ×5 (00:01→23:59)
[2017-08-03] MEDS: MORPHINE SULFATE 8mg/ml INJ SDV IV PRN ×5 (02:21→22:48)
[2017-08-03] MEDS: fentaNYL Drip 2500mCg/250mlNS 250 ML IV SCH (03:06)
[2017-08-03 03:37] LABS: Basophils # (auto) 0 uL; Basophils % (auto) 0.3 % (0.0-2.0); Eosinophils # (auto) 0.1 uL; Eosinophils % (auto) 2.1 % (0.0-7.0); Hematocrit 28.2 % (36.0-46.0); Hemoglobin 9.6 g/dL (12.2-16.2); Lymphocytes # (auto) 0.6 uL; Lymphocytes % (auto) 11.3 % (10.0-50.0); Mean Corpuscular Hemoglobin 31.6 pg (28.0-32.0); Mean Corpuscular Hgb Conc. 34.2 g/dL (32.0-36.0); Mean Corpuscular Volume 92.3 fL (80.0-100.0); Monocytes # (auto) 0.4 uL; Monocytes % (auto) 7.5 % (0.0-12.0); Neutrophils # (auto) 4.5 uL; Neutrophils % (auto) 78.8 % (37.0-80.0); Platelet Count (auto) 194 10^3/uL (140-450); Red Blood Cells 3.05 10^6/uL (4.0-5.20); Red Cell Distribution Width 15.1 % (11.8-14.3); White Blood Cell 5.7 10^3/uL (4.4-10.8)
[2017-08-03 03:53] LABS: Albumin 1.8 g/dL (3.4-5.0); Calcium 7.4 mg/dL (8.5-10.1); Potassium 4.3 mmol/L (3.5-5.1)
[2017-08-03 03:55] LABS: BUN/Creatinine Ratio 30.8
[2017-08-03 03:57] LABS: Bilirubin, Total 0.5 mg/dL (0.2-1.0); Total Protein 4.7 g/dL (6.4-8.2)
[2017-08-03 04:04] LABS: Magnesium 1.8 mg/dL (1.6-2.6); Phosphorus 2.1 mg/dL (2.5-4.90)
[2017-08-03] MEDS ORDERED: LABETALOL HCL 5 MG/ML ML 20ML VIAL IV ONE ×2 (04:45→04:48)
[2017-08-03] MEDS: InsuLIN REG 1unit/0.01ml Soln (100units/ml) SC SCH ×5 (05:32→23:59)
[2017-08-03] MEDS: NOREPINEPHRINE 16 MG/500ML KIT 500 ML IV SCH (09:00)
[2017-08-03] MEDS: VANCOMYCIN 750 MG in D5W 5% 250 ML IV SCH ×2 (09:08→19:33)
[2017-08-03] MEDS ORDERED: SODIUM PHOSP 20MEQ(15MMOL) IN NS 100 ML IV ONE (10:00)
[2017-08-03] MEDS: ENOXAPARIN SOD 30 MG/0.3 ML SYRINGE SC SCH (10:39)
[2017-08-03] MEDS: FLUCONAZOLE 200MG/100ML 100 ML IV SCH (10:39)
[2017-08-03] MEDS: PANTOPRAZOLE 40 MG/10 ML VIAL IV SCH (10:39)
[2017-08-03] MEDS: SODIUM CHLOR 0.9% PF (SALINE LOCK) 10ML VIAL/SYR IV SCH ×2 (10:39→21:42)
[2017-08-03] MEDS ORDERED: MAGNESIUM SULFATE 1GM/100ML 100 ML IV ONE (14:15)
[2017-08-03] MEDS: D5W/SOD CHL 0.45% 1,000 ML IV SCH (20:00)
[2017-08-03] MEDS ORDERED: TPN PER PHARMACY IV NR ×10 (20:00)
[2017-08-04] VITALS (29 sets, daily range): BP systolic 123–187; BP diastolic 63–106
[2017-08-04] MEDS: KETOROLAC TROMETH 30 MG/ML 1ML VIAL IV PRN (03:27)
[2017-08-04 03:57] LABS: Basophils # (auto) 0 uL; Basophils % (auto) 0.4 % (0.0-2.0); Eosinophils # (auto) 0.1 uL; Eosinophils % (auto) 2.1 % (0.0-7.0); Hematocrit 28.5 % (36.0-46.0); Hemoglobin 9.9 g/dL (12.2-16.2); Lymphocytes # (auto) 0.7 uL; Lymphocytes % (auto) 13.5 % (10.0-50.0); Mean Corpuscular Hemoglobin 31.6 pg (28.0-32.0); Mean Corpuscular Hgb Conc. 34.6 g/dL (32.0-36.0); Mean Corpuscular Volume 91.3 fL (80.0-100.0); Monocytes # (auto) 0.4 uL; Monocytes % (auto) 8.1 % (0.0-12.0); Neutrophils # (auto) 3.8 uL; Neutrophils % (auto) 75.9 % (37.0-80.0); Platelet Count (auto) 232 10^3/uL (140-450); Red Blood Cells 3.12 10^6/uL (4.0-5.20); Red Cell Distribution Width 14.8 % (11.8-14.3)
[2017-08-04 04:02] LABS: Albumin 1.7 g/dL (3.4-5.0); BUN/Creatinine Ratio 24.5; Bilirubin, Total 0.6 mg/dL (0.2-1.0); Calcium 7.1 mg/dL (8.5-10.1); Magnesium 2.1 mg/dL (1.6-2.6); Potassium 3.8 mmol/L (3.5-5.1); Pre Albumin 13.9 mg/dL (20.0-40.0)
[2017-08-04] MEDS: MORPHINE SULFATE 8mg/ml INJ SDV IV PRN ×4 (04:34→20:15)
[2017-08-04] MEDS: metroNIDAZOLE 500MG/100ML 100 ML IV SCH ×4 (05:00→23:00)
[2017-08-04] MEDS: PIPERACILLIN-TAZOB 3.375GM 100 ML IV SCH ×3 (05:46→18:31)
[2017-08-04] MEDS: ACCU-CHEK COMFORT CURVE STRIP VI SCH ×3 (05:48→18:00)
[2017-08-04] MEDS: InsuLIN REG 1unit/0.01ml Soln (100units/ml) SC SCH ×3 (05:50→18:00)
[2017-08-04] MEDS: VANCOMYCIN 750 MG in D5W 5% 250 ML IV SCH ×2 (08:12→20:00)
[2017-08-04] MEDS: SODIUM CHLOR 0.9% PF (SALINE LOCK) 10ML VIAL/SYR IV SCH ×2 (11:22→22:00)
[2017-08-04] MEDS: PANTOPRAZOLE 40 MG/10 ML VIAL IV SCH (11:22)
[2017-08-04] MEDS: FLUCONAZOLE 200MG/100ML 100 ML IV SCH (11:23)
[2017-08-04] MEDS: ENOXAPARIN SOD 30 MG/0.3 ML SYRINGE SC SCH (11:23)
[2017-08-04 11:44] LABS: INR 1.01 (0.9-1.15)
[2017-08-04] MEDS ORDERED: SODIUM PHOSPHATES 20 MEQ in SODIUM CHL 0.9% 100 ML IV ONE (12:45)
[2017-08-04] MEDS ORDERED: ONDANSETRON HCL 4 MG/2 ML VIAL IV PRN (13:15)
[2017-08-04] MEDS ORDERED: LIDOCAINE 1% (LOCAL ANESTH.) PF 5ml SDV ID ONE (14:30)
[2017-08-04] MEDS ORDERED: TPN PER PHARMACY IV NR ×11 (20:00)
[2017-08-05] VITALS (17 sets, daily range): BP systolic 140–189; BP diastolic 45–121
[2017-08-05 03:56] LABS: Basophils # (auto) 0 uL; Basophils % (auto) 0.5 % (0.0-2.0); Eosinophils # (auto) 0.2 uL; Eosinophils % (auto) 4.8 % (0.0-7.0); Hematocrit 28.2 % (36.0-46.0); Hemoglobin 9.7 g/dL (12.2-16.2); Lymphocytes # (auto) 0.8 uL; Lymphocytes % (auto) 17.4 % (10.0-50.0); Mean Corpuscular Hemoglobin 31.2 pg (28.0-32.0); Mean Corpuscular Hgb Conc. 34.3 g/dL (32.0-36.0); Mean Corpuscular Volume 91.2 fL (80.0-100.0); Monocytes # (auto) 0.5 uL; Monocytes % (auto) 9.8 % (0.0-12.0); Neutrophils # (auto) 3.3 uL; Neutrophils % (auto) 67.5 % (37.0-80.0); Nucleated Red Blood Cells % 0.1 %; Platelet Count (auto) 277 10^3/uL (140-450); Red Blood Cells 3.09 10^6/uL (4.0-5.20); White Blood Cell 4.8 10^3/uL (4.4-10.8)
[2017-08-05 04:11] LABS: Albumin 1.8 g/dL (3.4-5.0); Magnesium 1.8 mg/dL (1.6-2.6); Phosphorus 2.5 mg/dL (2.5-4.90); Potassium 3.8 mmol/L (3.5-5.1)
[2017-08-05 04:16] LABS: Bilirubin, Total 0.5 mg/dL (0.2-1.0); Total Protein 4.7 g/dL (6.4-8.2)
[2017-08-05] MEDS: MORPHINE SULFATE 8mg/ml INJ SDV IV PRN ×3 (04:24→21:33)
[2017-08-05] MEDS: metroNIDAZOLE 500MG/100ML 100 ML IV SCH ×4 (05:22→22:09)
[2017-08-05] MEDS: InsuLIN REG 1unit/0.01ml Soln (100units/ml) SC SCH ×5 (06:00→23:53)
[2017-08-05] MEDS: PIPERACILLIN-TAZOB 3.375GM 100 ML IV SCH ×5 (06:00→23:53)
[2017-08-05] MEDS: ACCU-CHEK COMFORT CURVE STRIP VI SCH ×5 (06:00→23:53)
[2017-08-05] MEDS: VANCOMYCIN 750 MG in D5W 5% 250 ML IV SCH (08:00)
[2017-08-05] MEDS ORDERED: DEXTROSE (50%) 50ML SYRG IV PRN (08:15)
[2017-08-05] MEDS ORDERED: hydrALAZINE HCL 20 MG/ML VL IV PRN (09:30)
[2017-08-05] MEDS: FLUCONAZOLE 200MG/100ML 100 ML IV SCH (09:43)
[2017-08-05] MEDS: ENOXAPARIN SOD 30 MG/0.3 ML SYRINGE SC SCH (09:44)
[2017-08-05] MEDS: SODIUM CHLOR 0.9% PF (SALINE LOCK) 10ML VIAL/SYR IV SCH ×2 (09:44→21:03)
[2017-08-05] MEDS: PANTOPRAZOLE 40 MG/10 ML VIAL IV SCH (09:44)
[2017-08-05] MEDS ORDERED: MAGNESIUM SULFATE 1GM/100ML 100 ML IV ONE (13:15)
[2017-08-05] MEDS: ALBUMIN 25% 100 ML IV SCH ×2 (14:42→21:03)
[2017-08-05] MEDS ORDERED: TPN PER PHARMACY IV NR ×11 (20:00)
[2017-08-06] VITALS: BP 143/60
[2017-08-06] MEDS: KETOROLAC TROMETH 30 MG/ML 1ML VIAL IV PRN (00:32)
[2017-08-06 04:00] VITALS: BP 153/69
[2017-08-06] MEDS: metroNIDAZOLE 500MG/100ML 100 ML IV SCH ×4 (05:38→22:11)
[2017-08-06] MEDS: ACCU-CHEK COMFORT CURVE STRIP VI SCH ×4 (05:38→23:28)
[2017-08-06 05:53] LABS: Albumin 2.8 g/dL (3.4-5.0); BUN/Creatinine Ratio 26.8; Bilirubin, Total 0.6 mg/dL (0.2-1.0); Calcium 7.9 mg/dL (8.5-10.1); Magnesium 2.3 mg/dL (1.6-2.6); Phosphorus 2.2 mg/dL (2.5-4.90); Potassium 3.3 mmol/L (3.5-5.1); Total Protein 5.7 g/dL (6.4-8.2)
[2017-08-06] MEDS: ALBUMIN 25% 100 ML IV SCH (05:58)
[2017-08-06] MEDS: PIPERACILLIN-TAZOB 3.375GM 100 ML IV SCH ×4 (06:41→23:28)
[2017-08-06] MEDS: InsuLIN REG 1unit/0.01ml Soln (100units/ml) SC SCH ×4 (06:42→23:30)
[2017-08-06 08:00] VITALS: BP 139/63
[2017-08-06] MEDS ORDERED: POTASSIUM PHOSPHATE 44 MEQ in D5W 5% 250 ML IV ONE (10:00)
[2017-08-06] MEDS: SODIUM CHLOR 0.9% PF (SALINE LOCK) 10ML VIAL/SYR IV SCH ×2 (10:30→21:37)
[2017-08-06] MEDS: PANTOPRAZOLE 40 MG/10 ML VIAL IV SCH (10:30)
[2017-08-06] MEDS: ENOXAPARIN SOD 30 MG/0.3 ML SYRINGE SC SCH (10:30)
[2017-08-06] MEDS ORDERED: HALOPERIDOL 1 MG TAB PO PRN (11:00)
[2017-08-06 12:00] VITALS: BP 158/91
[2017-08-06 16:00] VITALS: BP 141/77
[2017-08-06] MEDS: ACETAMINOPHEN 500 MG TAB PO PRN (18:32)
[2017-08-06 19:53] VITALS: BP 125/76
[2017-08-06] MEDS ORDERED: TPN PER PHARMACY IV NR ×11 (20:00)
[2017-08-06] MEDS: ACETAMINOPHEN/CODEINE#3 (300/30mg) TAB PO PRN (23:10)
[2017-08-07] VITALS: BP 137/74
[2017-08-07 04:00] VITALS: BP 118/56
[2017-08-07] MEDS: metroNIDAZOLE 500MG/100ML 100 ML IV SCH ×4 (04:11→23:02)
[2017-08-07 05:28] LABS: Basophils # (auto) 0.1 uL; Eosinophils # (auto) 0.7 uL; Eosinophils % (auto) 11.3 % (0.0-7.0); Hematocrit 31.6 % (36.0-46.0); Hemoglobin 10.5 g/dL (12.2-16.2); Lymphocytes # (auto) 1.2 uL; Lymphocytes % (auto) 21.1 % (10.0-50.0); Mean Corpuscular Hemoglobin 30.4 pg (28.0-32.0); Mean Corpuscular Hgb Conc. 33.2 g/dL (32.0-36.0); Mean Corpuscular Volume 91.7 fL (80.0-100.0); Monocytes # (auto) 0.7 uL; Monocytes % (auto) 11.5 % (0.0-12.0); Neutrophils # (auto) 3.2 uL; Neutrophils % (auto) 55.1 % (37.0-80.0); Nucleated Red Blood Cells % 0.1 %; Platelet Count (auto) 423 10^3/uL (140-450); Red Blood Cells 3.45 10^6/uL (4.0-5.20); Red Cell Distribution Width 15.2 % (11.8-14.3); White Blood Cell 5.8 10^3/uL (4.4-10.8)
[2017-08-07 05:48] LABS: Albumin 2.7 g/dL (3.4-5.0); BUN/Creatinine Ratio 32.8; Bilirubin, Total 0.5 mg/dL (0.2-1.0); Calcium 7.9 mg/dL (8.5-10.1); Magnesium 2.6 mg/dL (1.6-2.6); Phosphorus 3.2 mg/dL (2.5-4.90); Potassium 4.1 mmol/L (3.5-5.1); Pre Albumin 22.7 mg/dL (20.0-40.0); Total Protein 5.4 g/dL (6.4-8.2)
[2017-08-07] MEDS: InsuLIN REG 1unit/0.01ml Soln (100units/ml) SC SCH ×3 (06:00→23:01)
[2017-08-07] MEDS: ACCU-CHEK COMFORT CURVE STRIP VI SCH ×3 (06:12→22:31)
[2017-08-07] MEDS: PIPERACILLIN-TAZOB 3.375GM 100 ML IV SCH ×3 (06:12→18:08)
[2017-08-07 07:53] VITALS: BP 134/82
[2017-08-07] MEDS: SODIUM CHLOR 0.9% PF (SALINE LOCK) 10ML VIAL/SYR IV SCH ×2 (10:00→22:31)
[2017-08-07] MEDS: ENOXAPARIN SOD 30 MG/0.3 ML SYRINGE SC SCH (10:36)
[2017-08-07] MEDS: PANTOPRAZOLE 40 MG/10 ML VIAL IV SCH (10:36)
[2017-08-07] MEDS ORDERED: DEXTROSE (50%) 50ML SYRG IV PRN (11:45)
[2017-08-07 12:00] VITALS: BP 140/70
[2017-08-07 16:54] VITALS: BP 126/78
[2017-08-07] MEDS ORDERED: TPN PER PHARMACY IV NR ×10 (20:00)
[2017-08-07 22:01] VITALS: BP 157/82
[2017-08-07] MEDS: ACETAMINOPHEN/CODEINE#3 (300/30mg) TAB PO PRN (23:05)
[2017-08-08] MEDS: PIPERACILLIN-TAZOB 3.375GM 100 ML IV SCH ×4 (00:01→19:01)
[2017-08-08] MEDS: ACETAMINOPHEN/CODEINE#3 (300/30mg) TAB PO PRN (03:11)
[2017-08-08] MEDS: metroNIDAZOLE 500MG/100ML 100 ML IV SCH ×4 (04:31→23:18)
[2017-08-08 05:23] VITALS: BP 145/75
[2017-08-08] MEDS: ACCU-CHEK COMFORT CURVE STRIP VI SCH ×4 (05:52→22:09)
[2017-08-08 06:09] LABS: Basophils # (auto) 0.1 uL; Eosinophils # (auto) 0.8 uL; Hemoglobin 9.7 g/dL (12.2-16.2); Monocytes # (auto) 0.7 uL; Neutrophils # (auto) 4.3 uL; White Blood Cell 6.9 10^3/uL (4.4-10.8)
[2017-08-08 06:11] LABS: Basophils % (auto) 1.2 % (0.0-2.0); Eosinophils % (auto) 11.2 % (0.0-7.0); Hematocrit 28.8 % (36.0-46.0); Lymphocytes # (auto) 1.1 uL; Lymphocytes % (auto) 15.3 % (10.0-50.0); Mean Corpuscular Hemoglobin 31.3 pg (28.0-32.0); Mean Corpuscular Hgb Conc. 33.8 g/dL (32.0-36.0); Mean Corpuscular Volume 92.7 fL (80.0-100.0); Monocytes % (auto) 10.4 % (0.0-12.0); Neutrophils % (auto) 61.9 % (37.0-80.0); Nucleated Red Blood Cells % 0.1 %; Platelet Count (auto) 473 10^3/uL (140-450); Red Blood Cells 3.11 10^6/uL (4.0-5.20); Red Cell Distribution Width 14.9 % (11.8-14.3)
[2017-08-08 06:16] LABS: Albumin 2.4 g/dL (3.4-5.0); BUN/Creatinine Ratio 33.8; Bilirubin, Total 0.4 mg/dL (0.2-1.0); Calcium 7.7 mg/dL (8.5-10.1); Magnesium 2.1 mg/dL (1.6-2.6); Phosphorus 2.2 mg/dL (2.5-4.90); Potassium 4.3 mmol/L (3.5-5.1); Total Protein 5.3 g/dL (6.4-8.2)
[2017-08-08] MEDS: InsuLIN REG 1unit/0.01ml Soln (100units/ml) SC SCH ×4 (06:49→22:09)
[2017-08-08 09:00] VITALS: BP 138/72
[2017-08-08] MEDS: PANTOPRAZOLE 40 MG/10 ML VIAL IV SCH (10:30)
[2017-08-08] MEDS: ENOXAPARIN SOD 30 MG/0.3 ML SYRINGE SC SCH (10:30)
[2017-08-08] MEDS: SODIUM CHLOR 0.9% PF (SALINE LOCK) 10ML VIAL/SYR IV SCH ×2 (10:30→22:10)
[2017-08-08] MEDS ORDERED: POTASSIUM PHOSPHATE 44 MEQ in D5W 5% 250 ML IV ONE (10:30)
[2017-08-08 13:00] VITALS: BP 142/83
[2017-08-08] MEDS: KETOROLAC TROMETH 30 MG/ML 1ML VIAL IV PRN (13:12)
[2017-08-08 17:00] VITALS: BP 143/72
[2017-08-08] MEDS ORDERED: TPN PER PHARMACY IV NR ×11 (20:00)
[2017-08-08 21:47] VITALS: BP 157/73
[2017-08-09] MEDS: PIPERACILLIN-TAZOB 3.375GM 100 ML IV SCH ×4 (00:39→19:01)
[2017-08-09] MEDS: metroNIDAZOLE 500MG/100ML 100 ML IV SCH ×4 (04:57→22:55)
[2017-08-09 05:05] VITALS: BP 154/77
[2017-08-09] MEDS: KETOROLAC TROMETH 30 MG/ML 1ML VIAL IV PRN (06:05)
[2017-08-09] MEDS: ACCU-CHEK COMFORT CURVE STRIP VI SCH ×4 (06:54→21:53)
[2017-08-09] MEDS: InsuLIN REG 1unit/0.01ml Soln (100units/ml) SC SCH ×4 (06:54→21:53)
[2017-08-09 07:17] LABS: Albumin 2.5 g/dL (3.4-5.0); BUN/Creatinine Ratio 33.8; Bilirubin, Total 0.4 mg/dL (0.2-1.0); Calcium 8.2 mg/dL (8.5-10.1); Phosphorus 2.7 mg/dL (2.5-4.90); Potassium 3.9 mmol/L (3.5-5.1); Total Protein 5.6 g/dL (6.4-8.2)
[2017-08-09 09:00] VITALS: BP 158/80
[2017-08-09] MEDS: PANTOPRAZOLE 40 MG/10 ML VIAL IV SCH (10:36)
[2017-08-09] MEDS: ENOXAPARIN SOD 30 MG/0.3 ML SYRINGE SC SCH (10:36)
[2017-08-09] MEDS: SODIUM CHLOR 0.9% PF (SALINE LOCK) 10ML VIAL/SYR IV SCH ×2 (10:37→21:54)
[2017-08-09] MEDS: D5W/SOD CHLO 0.9% 1,000 ML IV SCH ×2 (12:40→20:45)
[2017-08-09 13:00] VITALS: BP 141/76
[2017-08-09] MEDS: ACETAMINOPHEN 500 MG TAB PO PRN (16:58)
[2017-08-09 17:00] VITALS: BP 153/74
[2017-08-09] MEDS ORDERED: TPN PER PHARMACY IV NR ×12 (20:00)
[2017-08-09 22:00] VITALS: BP 151/77
[2017-08-10] MEDS: PIPERACILLIN-TAZOB 3.375GM 100 ML IV SCH ×4 (00:20→18:48)
[2017-08-10] MEDS: metroNIDAZOLE 500MG/100ML 100 ML IV SCH ×4 (04:26→23:07)
[2017-08-10] MEDS: ACETAMINOPHEN 500 MG TAB PO PRN (04:27)
[2017-08-10 05:00] VITALS: BP 152/78
[2017-08-10] MEDS: D5W/SOD CHLO 0.9% 1,000 ML IV SCH (05:49)
[2017-08-10] MEDS: ACCU-CHEK COMFORT CURVE STRIP VI SCH ×4 (06:12→22:00)
[2017-08-10] MEDS: InsuLIN REG 1unit/0.01ml Soln (100units/ml) SC SCH ×4 (06:12→21:59)
[2017-08-10 07:05] LABS: Albumin 2.4 g/dL (3.4-5.0); Bilirubin, Total 0.6 mg/dL (0.2-1.0); Calcium 8.3 mg/dL (8.5-10.1); Magnesium 1.9 mg/dL (1.6-2.6); Phosphorus 2.8 mg/dL (2.5-4.90); Potassium 3.8 mmol/L (3.5-5.1); Total Protein 5.7 g/dL (6.4-8.2)
[2017-08-10 08:56] VITALS: BP 151/81
[2017-08-10] MEDS: KETOROLAC TROMETH 30 MG/ML 1ML VIAL IV PRN (09:01)
[2017-08-10] MEDS: SODIUM CHLOR 0.9% PF (SALINE LOCK) 10ML VIAL/SYR IV SCH ×2 (10:33→23:07)
[2017-08-10] MEDS: ENOXAPARIN SOD 30 MG/0.3 ML SYRINGE SC SCH (10:33)
[2017-08-10] MEDS: PANTOPRAZOLE 40 MG/10 ML VIAL IV SCH (10:33)
[2017-08-10] MEDS ORDERED: MAGNESIUM SULFATE 1GM/100ML 100 ML IV ONE (11:15)
[2017-08-10 12:25] VITALS: BP 133/72
[2017-08-10 17:04] VITALS: BP 138/67
[2017-08-10] MEDS ORDERED: TPN PER PHARMACY IV NR ×11 (20:00)
[2017-08-11] MEDS: PIPERACILLIN-TAZOB 3.375GM 100 ML IV SCH ×2 (00:24→06:15)
[2017-08-11] MEDS: metroNIDAZOLE 500MG/100ML 100 ML IV SCH (04:49)
[2017-08-11 05:40] VITALS: BP 139/64
[2017-08-11] MEDS: InsuLIN REG 1unit/0.01ml Soln (100units/ml) SC SCH ×4 (06:24→22:00)
[2017-08-11] MEDS: ACCU-CHEK COMFORT CURVE STRIP VI SCH ×4 (06:25→22:03)
[2017-08-11 07:00] LABS: Mean Corpuscular Hemoglobin 32.8 pg (28.0-32.0); Mean Corpuscular Hgb Conc. 32.9 g/dL (32.0-36.0)
[2017-08-11 07:07] LABS: Hematocrit 31.8 % (36.0-46.0); Hemoglobin 10.5 g/dL (12.2-16.2); Mean Corpuscular Volume 99.6 fL (80.0-100.0); Platelet Count (auto) 614 10^3/uL (140-450); Red Blood Cells 3.19 10^6/uL (4.0-5.20); Red Cell Distribution Width 16.5 % (11.8-14.3); White Blood Cell 7.4 10^3/uL (4.4-10.8)
[2017-08-11 07:12] LABS: Basophils % (manual) 0 (0.0-2.0); Blast Cells 0; Metamyelocytes % 0; Myelocytes % 0; Promyelocytes % 0; Reactive Lymphocytes 0
[2017-08-11 08:10] VITALS: BP 122/64
[2017-08-11 08:49] LABS: Band Neutrophils % (manual) 5; Eosinophils % (manual) 15 (0-7); Lymphocytes % (manual) 10 (10.0-50.0); Monocytes % (manual) 6 (0-12)
[2017-08-11 08:57] LABS: Albumin 2.3 g/dL (3.4-5.0); BUN/Creatinine Ratio 33.8; Bilirubin, Total 0.3 mg/dL (0.2-1.0); Calcium 8.1 mg/dL (8.5-10.1); Phosphorus 2.3 mg/dL (2.5-4.90); Potassium 3.7 mmol/L (3.5-5.1); Total Protein 5.7 g/dL (6.4-8.2)
[2017-08-11] MEDS ORDERED: SODIUM PHOSP 20MEQ(15MMOL) IN NS 100 ML IV ONE (09:45)
[2017-08-11] MEDS: PANTOPRAZOLE 40 MG/10 ML VIAL IV SCH (10:06)
[2017-08-11] MEDS: SODIUM CHLOR 0.9% PF (SALINE LOCK) 10ML VIAL/SYR IV SCH ×2 (10:06→22:03)
[2017-08-11] MEDS: ENOXAPARIN SOD 30 MG/0.3 ML SYRINGE SC SCH (10:07)
[2017-08-11] MEDS ORDERED: PROCHLORPERAZINE EDISYLATE 5 MG/ML 2ML VIAL IV PRN (11:15)
[2017-08-11 13:00] VITALS: BP 143/73
[2017-08-11 17:47] VITALS: BP 134/70
[2017-08-11] MEDS ORDERED: TPN PER PHARMACY IV NR ×11 (20:00)
[2017-08-12] MEDS: ACETAMINOPHEN 500 MG TAB PO PRN (05:05)
[2017-08-12 06:03] VITALS: BP 144/87
[2017-08-12] MEDS: InsuLIN REG 1unit/0.01ml Soln (100units/ml) SC SCH ×2 (06:14→11:30)
[2017-08-12] MEDS: ACCU-CHEK COMFORT CURVE STRIP VI SCH ×2 (06:17→11:55)
[2017-08-12 07:12] LABS: Albumin 2.3 g/dL (3.4-5.0); BUN/Creatinine Ratio 34.5; Bilirubin, Total 0.2 mg/dL (0.2-1.0); Phosphorus 2.5 mg/dL (2.5-4.90); Potassium 3.5 mmol/L (3.5-5.1); Total Protein 5.5 g/dL (6.4-8.2)
[2017-08-12] MEDS: ACETAMINOPHEN/CODEINE#3 (300/30mg) TAB PO PRN ×3 (08:29→18:40)
[2017-08-12] MEDS: ENOXAPARIN SOD 30 MG/0.3 ML SYRINGE SC SCH (09:10)
[2017-08-12] MEDS: PANTOPRAZOLE 40 MG/10 ML VIAL IV SCH (09:10)
[2017-08-12 09:13] VITALS: BP 134/87
[2017-08-12] MEDS: KETOROLAC TROMETH 30 MG/ML 1ML VIAL IV PRN ×2 (10:34→16:01)
[2017-08-12] MEDS: SODIUM CHLOR 0.9% PF (SALINE LOCK) 10ML VIAL/SYR IV SCH ×2 (11:57→22:00)
[2017-08-12] MEDS ORDERED: ONDANSETRON ODT 4 MG TAB PO PRN (13:00)
[2017-08-12 13:38] VITALS: BP 148/76
[2017-08-12 16:43] VITALS: BP 163/111
[2017-08-12 17:00] VITALS: BP 136/77
[2017-08-12] MEDS: Boost Glucose Control 8 Ounces PO SCH (18:39)
[2017-08-12 22:12] VITALS: BP 144/72
[2017-08-13] MEDS: ACETAMINOPHEN/CODEINE#3 (300/30mg) TAB PO PRN ×4 (00:19→16:38)
[2017-08-13] MEDS: KETOROLAC TROMETH 30 MG/ML 1ML VIAL IV PRN ×2 (03:46→11:23)
[2017-08-13 04:53] VITALS: BP 132/72
[2017-08-13 07:26] VITALS: BP 146/71
[2017-08-13] MEDS: Boost Glucose Control 8 Ounces PO SCH ×2 (09:41→14:52)
[2017-08-13] MEDS: SODIUM CHLOR 0.9% PF (SALINE LOCK) 10ML VIAL/SYR IV SCH (09:41)
[2017-08-13] MEDS: ENOXAPARIN SOD 30 MG/0.3 ML SYRINGE SC SCH (09:41)
[2017-08-13] MEDS ORDERED: PANTOPRAZOLE 40 MG TAB PO SCH (10:00)
[2017-08-13 11:28] VITALS: BP 135/69
[2017-08-13 14:12] VITALS: BP 163/111
[2017-08-13 16:18] VITALS: BP 136/75
== END 2017-08-13 16:38 | DRG 853 ==
LOC: EDBD 20:29 → ER 20:32 → OVERFLOW 20:33 → DOU IN ICU 07-23 17:16 → ICU WEST 07-28 09:30 → DOU IN ICU 08-05 13:11 → TELE-EAST 08-07 16:29
PROVIDERS: ADMIT Nurse Practitioner Family; ATTEND Internal Medicine
PROC: 0W9F3ZZ Drainage of Abdominal Wall, Percutaneous Approach (ICD-10-PCS; 2017-07-23)
PROC: 5A1955Z Respiratory Ventilation, Greater than 96 Consecutive Hours (ICD-10-PCS; 2017-07-28)
PROC: 0BH18EZ Insertion of Endotracheal Airway into Trachea, Via Natural or Artificial Opening Endoscopic (ICD-10-PCS; 2017-07-28)
PROC: 30233N1 Transfusion of Nonautologous Red Blood Cells into Peripheral Vein, Percutaneous Approach (ICD-10-PCS; 2017-07-28)
PROC: 0DBL0ZZ Excision of Transverse Colon, Open Approach (ICD-10-PCS; principal; 2017-07-31)
PROC: 0DBB0ZX Excision of Ileum, Open Approach, Diagnostic (ICD-10-PCS; 2017-07-31)
PROC: 0D1B0Z4 Bypass Ileum to Cutaneous, Open Approach (ICD-10-PCS; 2017-07-31)
PROC: 0DTK0ZZ Resection of Ascending Colon, Open Approach (ICD-10-PCS; 2017-07-31)
PROC: 0W9G0ZZ Drainage of Peritoneal Cavity, Open Approach (ICD-10-PCS; 2017-07-31)
PROC: 05H333Z Insertion of Infusion Device into Right Innominate Vein, Percutaneous Approach (ICD-10-PCS; 2017-08-04)
PROC: 02HV33Z Insertion of Infusion Device into Superior Vena Cava, Percutaneous Approach (ICD-10-PCS; 2017-08-04)
DX: A41.9 Sepsis, unspecified organism (principal); K63.1 Perforation of intestine (nontraumatic); J96.00 Acute respiratory failure, unspecified whether with hypoxia or hypercapnia; K65.1 Peritoneal abscess; E43 Unspecified severe protein-calorie malnutrition; N17.0 Acute kidney failure with tubular necrosis; R65.21 Severe sepsis with septic shock; G93.41 Metabolic encephalopathy; D62 Acute posthemorrhagic anemia; E86.0 Dehydration; E87.0 Hyperosmolality and hypernatremia; Z68.1 Body mass index [BMI] 19.9 or less, adult; E87.6 Hypokalemia; I10 Essential (primary) hypertension; Z79.899 Other long term (current) drug therapy
CPT/HCPCS: 10022; 36415; 36569; 36600; 51702; 70450; 71045; 71260; 74018; 74176; 74177; 74245; 77012; 80048; 80053; 80202; 80307; 80320; 81001; 82010; 82040; 82550; 82805; 82962; 83036; 83605; 83735; 84100; 84132; 84478; 84484; 85007; 85025; 85027; 85610; 85730; 86141; 86850; 86900; 86901; 86920; 87040; 87070; 87076; 87081; 87086; 87205; 93005; 93971; 94002; 94003; 94640; 96361; 96365; 96366; 96367; 96375; 97110; 97116; 97530; 99291; 99292; A4223; A4565; C1729; C9113; G0378; J0330; J1450; J1815; J1885; J2250; J2270; J2405; J2543; J3480; J3490; J7042; J7060; J7131; P9047

== ENCOUNTER → 2018-08-25 | Outpatient (CLI) | payer MEDICARE ==
[2018-08-25 12:06] LABS: Basophils # (auto) 0 uL; Basophils % (auto) 0.7 % (0.0-2.0); Eosinophils # (auto) 0.1 uL; Eosinophils % (auto) 1.4 % (0.0-7.0); Hematocrit 34.5 % (36.0-46.0); Hemoglobin 11.4 g/dL (12.2-16.2); Lymphocytes % (auto) 25.9 % (10.0-50.0); Mean Corpuscular Hemoglobin 30.3 pg (28.0-32.0); Monocytes # (auto) 0.2 uL; Monocytes % (auto) 6.1 % (0.0-12.0); Neutrophils # (auto) 2.6 uL; Neutrophils % (auto) 65.9 % (37.0-80.0); Nucleated Red Blood Cells % 0.1 %; Platelet Count (auto) 318 10^3/uL (140-450); Red Blood Cells 3.75 10^6/uL (4.0-5.20); Red Cell Distribution Width 14.7 % (11.8-14.3); White Blood Cell 3.9 10^3/uL (4.4-10.8)
[2018-08-25 12:11] LABS: Urine Bacteria FEW /hpf (None Seen); Urine Blood Negative /uL (Negative); Urine Mucus FEW (None Seen); Urine Specific Gravity 1.021 (1.001-1.035); Urine WBC 20 /hpf (0 - 5)
[2018-08-25 12:48] LABS: Albumin 4.1 g/dL (3.4-5.0); Calcium 9.4 mg/dL (8.5-10.1); Potassium 3.9 mmol/L (3.5-5.1)
[2018-08-25 12:54] LABS: BUN/Creatinine Ratio 9.9; Bilirubin, Total 0.5 mg/dL (0.2-1.0); Total Protein 7.2 g/dL (6.4-8.2)
[2018-08-25 13:11] LABS: Free T4 (Free Thyroxine) 1.19 ng/dL (0.89-1.76)
[2018-08-25 13:12] LABS: Folate (Folic Acid) > 24.00 ng/mL (5.38-24)
== END | disposition home or self-care (01) ==
LOC: LAB 11:38
PROVIDERS: ATTEND Internal Medicine
DX: I10 Essential (primary) hypertension (principal); R79.89 Other specified abnormal findings of blood chemistry
CPT/HCPCS: 36415; 80053; 80061; 81001; 82607; 82746; 83036; 84439; 84443; 85025